=== PATIENT | male | born 1940 | race Caucasian/White ===

== ENCOUNTER 2021-01-22 11:03 | Emergency (ER) | payer MEDICARE, OTHER ==
--- NOTE | 2021-01-22 11:23 | EDM.PDOC ---
ED HPI GENERAL MEDICAL PROBLEM - General Chief Complaint: Syncope Stated Complaint: BY AMBULANCE Time Seen by Provider: 01/22/21 11:10 Source of Information: Reports: Patient, RN, RN Notes Reviewed, Other (BILL Martin in [facility]) History Limitations: Reports: No Limitations - History of Present Illness INITIAL COMMENTS - FREE TEXT/NARRATIVE: The patient is an 81 y/o male who presents to the ED as a visitor from same-day surgery due to syncope. Per report from [facility] RN, the patient was sitting with his in her preop appointment when he abruptly went unresponsive. He was noticed to be diaphoretic, cold to touch, with pallor and a weak thready carotid pulse. She reports he became responsive after about 10 seconds. The patient did not receive any compressions, medications, or defibrillation; a code was never called. Upon arrival to the ED the patient is alert and oriented to all spheres with a GCS of 15. He reports a history of multiple syncopal events when he becomes dehydrated; he states he did eat breakfast this morning. He reports a history of CAD s/p CABG x4 in 2013, GERD, and is s/p right carotid endarterectomy x2. He states his daily medications are aspirin 81 mg and omeprazole 20 mg. He denies recent illness, fever, vision changes, chest pain, palpitations, shortness of breath, abdominal pain, nausea, vomiting, or diarrhea. He denies tobacco, alcohol, or recreational drug use. - Related Data Allergies Allergy/AdvReac Type Severity Reaction Status Date / Time meperidine [From Demerol] Allergy Cannot Verified 01/22/21 11:09 Remember Home Meds: Home Meds Aspirin 81 mg PO DAILY 01/22/21 [History] Pantoprazole Sodium [Protonix] 40 mg PO DAILY 01/22/21 [History] ED ROS GENERAL - Review of Systems Review Of Systems: Comprehensive ROS is negative, except as noted in HPI. - Physical Exam Exam: See Below Exam Limited By: No Limitations General Appearance: Alert, No Apparent Distress, Thin Eye Exam: Bilateral Eye: EOMI, Normal Inspection, PERRL (3mm) Ears: Normal External Exam, Normal Canal, Hearing Grossly Normal, Normal TMs Nose: Normal Inspection, Normal Mucosa, No Blood Throat/Mouth: Normal Inspection, Normal Oropharynx, Normal Voice, No Airway Compromise Head Exam: Atraumatic, Normocephalic Neck: Normal Inspection, Supple, Non-Tender, Full Range of Motion, Other (Surgical scar to right; s/p carotid endart). No: Lymphadenopathy (L), Lymphadenopathy (R) Respiratory/Chest: No Respiratory Distress, Lungs Clear, Normal Breath Sounds, No Accessory Muscle Use, Chest Non-Tender Cardiovascular: Regular Rate, Rhythm, No Edema, No Gallop, No JVD, No Rub, Bradycardia, Diastolic Murmur (Loudest over the mitral area; No radiation to the carotids) GI/Abdominal: Normal Bowel Sounds, Soft, Non-Tender, No Distention, No Mass, Pelvis Stable (Male) Exam: Deferred Rectal (Males) Exam: Deferred Neuro Exam (Abbreviated): Alert, Oriented, Normal Cognition, No Motor/Sensory Deficits, Other (L facial droop; Slurred speech). No: Memory Loss Remote Events, Memory Loss Recent Events Back Exam: Normal Inspection, Full Range of Motion Extremities: Normal Inspection, Normal Range of Motion, Non-Tender, No Pedal Edema, Normal Capillary Refill Psychiatric: Normal Mood, Flat Affect Skin Exam: Warm, Dry, Intact, No Rash, Pallor. No: Ecchymosis, Erythema, Jaundice, Mottled, Petechiae #1 Interpretation EKG Date: 01/22/21 Time: 11:32 Rhythm: Other (Sinus bradycardia with 1D AVB) Rate (Beats/Min): 48 [place]: Normal P-Wave: Present QRS: Normal ST-T: Normal QT: Normal SC/PQ Interval: 0.204 Comparison: NA - No Prior EKG EKG Interpretation Comments: SB with 1D AVB Course - Vital Signs Last Recorded V/S: Last Vital Signs Temp Pulse 53 L 01/22/21 11:10 Resp 17 01/22/21 11:10 BP 131/70 01/22/21 11:10 Pulse Ox 97 01/22/21 11:10 - Orders/Labs/Meds Orders: Active Orders 24 hr Category Date Time Status Blood Glucose Check, Bedside [RC] ONETIME Care 01/22/21 11:04 Active EKG Documentation Completion [RC] STAT Care 01/22/21 11:04 Active DRUG SCREEN URINE BIORAD [URCHEM] Urgent Lab 01/22/21 11:04 Ordered UA RFX TIP AND CULT IF INDIC [URIN] Stat Lab 01/22/21 11:04 Ordered Labs: Laboratory Tests 01/22/21 01/22/21 01/22/21 Range/Units 11:14 11:14 11:14 WBC 9.8 (5.0-10.0) 10^3/uL RBC 5.09 (4.6-6.2) 10^6/uL Hgb 15.7 (14.0-18.0) g/dL Hct 46.6 (40.0-54.0) % MCV 91.6 (80-100) fL MCH 30.8 (27.0-34.0) pg MCHC 33.7 (33.0-35.0) g/dL Plt Count 190 (150-450) 10^3/uL Neut % (Auto) 49.2 (42.2-75.2) % Lymph % (Auto) 36.3 (20.5-50.1) % Price % (Auto) 9.0 H (2-8) % Eos % (Auto) 4.8 H (1.0-3.0) % Baso % (Auto) 0.7 (0.0-1.0) % PT 10.9 (9.0-12.0) SEC INR 1.1 (0.9-1.2) APTT 25.0 (22.0-34.0) SEC Sodium 138 (136-145) mmol/L Potassium 4.2 (3.5-5.1) mmol/L Chloride 102 (98-107) mmol/L Carbon Dioxide 28 (21-32) mmol/L Anion Gap 12.2 (7-13) mEq/L BUN 20 H (7-18) mg/dL Creatinine 0.99 (0.70-1.30) mg/dL Est Cr Clr Drug Dosing TNP Estimated GFR (MDRD) > 60 BUN/Creatinine Ratio 20.2 (No establ ref range) Glucose 93 (70-99) mg/dL Lactic Acid (0.4-2.0) mmol/L Calcium 8.4 L (8.5-10.1) mg/dL Magnesium 2.0 (1.8-2.4) mg/dL Total Bilirubin 0.7 (0.2-1.0) mg/dL AST 21 (15-37) U/L ALT 25 (16-63) U/L Alkaline Phosphatase 76 (46-116) U/L Troponin I < 0.017 (0.000-0.056) ng/mL C-Reactive Protein < 0.2 (0.0-0.9) mg/dL B-Natriuretic Peptide 54 (0-100) pg/ml Total Protein 7.2 (6.4-8.2) g/dL Albumin 3.3 L (3.4-5.0) g/dL Globulin 3.9 Albumin/Globulin Ratio 0.85 Ethyl Alcohol < 3 (0) mg/dL 01/22/21 Range/Units 11:14 WBC (5.0-10.0) 10^3/uL RBC (4.6-6.2) 10^6/uL Hgb (14.0-18.0) g/dL Hct (40.0-54.0) % MCV (80-100) fL MCH (27.0-34.0) pg MCHC (33.0-35.0) g/dL Plt Count (150-450) 10^3/uL Neut % (Auto) (42.2-75.2) % Lymph % (Auto) (20.5-50.1) % Price % (Auto) (2-8) % Eos % (Auto) (1.0-3.0) % Baso % (Auto) (0.0-1.0) % PT (9.0-12.0) SEC INR (0.9-1.2) APTT (22.0-34.0) SEC Sodium (136-145) mmol/L Potassium (3.5-5.1) mmol/L Chloride (98-107) mmol/L Carbon Dioxide (21-32) mmol/L Anion Gap (7-13) mEq/L BUN (7-18) mg/dL Creatinine (0.70-1.30) mg/dL Est Cr Clr Drug Dosing Estimated GFR (MDRD) BUN/Creatinine Ratio (No establ ref range) Glucose (70-99) mg/dL Lactic Acid 1.5 (0.4-2.0) mmol/L Calcium (8.5-10.1) mg/dL Magnesium (1.8-2.4) mg/dL Total Bilirubin (0.2-1.0) mg/dL AST (15-37) U/L ALT (16-63) U/L Alkaline Phosphatase (46-116) U/L Troponin I (0.000-0.056) ng/mL C-Reactive Protein (0.0-0.9) mg/dL B-Natriuretic Peptide (0-100) pg/ml Total Protein (6.4-8.2) g/dL Albumin (3.4-5.0) g/dL Globulin Albumin/Globulin Ratio Ethyl Alcohol (0) mg/dL - Re-Assessments/Exams Free Text/Narrative Re-Assessment/Exam: 01/22/21 NIH 2 for facial droop and slurred speech; CT head w/o obtained EKG reveals bradycardia with a rate of 48; no ST elevation or indications of myocardial ischemia. Troponin WNL. Patient continues to deny chest pain/shortness of breath. Speech slightly improved, but facial droop persists. CBC and CMP unremarkable; no evidence of infection or anemia with appropriate electrolytes, kidney function, and liver function. CT head remarkable for multiple ischemic lesions scattered to right and left hemispheres. Discussed findings of examination, imaging, and lab work with patient and , including ischemic lesions and significant bradycardia. Given symptomatic events that could be cardiac or neurologic in nature need for transfer for further evaluation discussed. Patient agreeable to transfer. Case discussed with Dr. Marx, neurologist at [facility] in [place], who kindly agreed to accept patient for transfer. Given bradycardia, case further discussed with Dr. Hay, hospitalist, to determine direct admit vs ED status. Dr. Hay accepted patient for direct admission. Plan of care discussed with patient and who verbalized understanding and agreement. Departure - Departure Time of Disposition: 13:01 Disposition: DC/Tfer to Acute Hospital 02 Condition: Fair Clinical Impression: Bradycardia, Ischemic brain injury Syncope Qualifiers: Syncope type: unspecified Qualified Code(s): R55 - Syncope and collapse - Discharge Information Forms: ED Department Discharge, Interfacility Transfer ZEV Sepsis Event Note (ED) - Evaluation Sepsis Screening Result: No Definite Risk - Focused Exam Vital Signs: Vital Signs Pulse Resp BP Pulse Ox 01/22/21 11:10 53 L 17 131/70 97 - My Orders Last 24 Hours: My Active Orders 01/22/21 11:04 Blood Glucose Check, Bedside [RC] ONETIME EKG Documentation Completion [RC] STAT DRUG SCREEN URINE BIORAD [URCHEM] Urgent UA RFX TIP AND CULT IF INDIC [URIN] Stat - Assessment/Plan Last 24 Hours: My Active Orders 01/22/21 11:04 Blood Glucose Check, Bedside [] ONETIME EKG Documentation Completion [RC] STAT DRUG SCREEN URINE BIORAD [URCHEM] Urgent UA RFX TIP AND CULT IF INDIC [URIN] Stat
[2021-01-22 11:41] LABS: ANION GAP 12.2 mEq/L (7-13); CHLORIDE,CL 102 mmol/L (98-107); SODIUM,NA 138 mmol/L (136-145)
--- NOTE | 2021-01-22 11:42 | CT ---
EXAMINATION: Head wo Cont SEX: Male AGE: 81 years CLINICAL HISTORY: 81 year old male who had a syncopal episode (accompanying in same day surgery) and now L) sided facial droop. Stroke protocol. No comparison CT or MRI exams of the head immediately available. Scan technique: Volume acquisition of data emergency unenhanced CT scan of the head and brain obtained with the patient lying supine on the Siemens multi slice scanner [place], [place]. All data archived in the PAC system for storage, reformatting axial/sagittal/coronal planes and study. Interpretation: Abnormal. 1. Scattered multi infarct ISCHEMIC LESIONS identified periventricular white matter both cerebral hemispheres (R>L). 2. Atrophy consistent with age. 3. No supratentorial or posterior fossa mass lesion. Cerebellum and brainstem unremarkable. Physiologic midline pineal and symmetric choroid plexus calcifications. No hydrocephalus. 4. No sign of acute intracerebral, intraventricular or subarachnoid bleed. 5. Uniformly thick bony calvarium. No skull fracture, underlying brain contusion or extracerebral/intracranial epidural or subdural hematoma. Symmetric clear pneumatization of the mastoid and paranasal sinuses. CONCLUSION: Multi-infarct disease. No intracranial bleed.
== END 2021-01-22 12:55 ==
LOC: DL.ED 11:03
DX: I67.82 Cerebral ischemia (principal); R00.1 Bradycardia, unspecified; R55 Syncope and collapse; K21.9 Gastro-esophageal reflux disease without esophagitis; I25.10 Atherosclerotic heart disease of native coronary artery without angina pectoris; Z95.1 Presence of aortocoronary bypass graft; Z88.5 Allergy status to narcotic agent; Z79.82 Long term (current) use of aspirin; Z79.899 Other long term (current) drug therapy
CPT/HCPCS: 36415; 70450; 80053; 80307; 82947; 83605; 83735; 83880; 84484; 85025; 85610; 85730; 86140; 93005; 93010; 99284; 99285-25